=== PATIENT | female | born 1970 | race Caucasian/White ===

== ENCOUNTER 2016-08-24 03:46 | Inpatient (IN) | payer MEDICAID ==
[~2016-08-24] VITALS: Ht 160 cm; Wt 94.8 kg
[~2016-08-24 03:46] MED LIST: IBUPROFEN400 MG PO
--- NOTE | 2016-08-24 04:11 | NUR ---
RECEIVED 46 Y/O F PT C/O LEFT FLANK PAIN. DESCRIBES THE PAIN AN ACHING 7/10 PAIN THAT COMES AND GOES. PT WOKE UP FROM HER SLEEP WITH LEFT FLANK PAIN. PT IS A&O X4, FOLLOWS COMMANDS, ABLE TO MAKE NEEDS KNOWN, DENIES PAIN RADIATING ANYWHERE.
--- NOTE | 2016-08-24 05:10 | NUR ---
WAREHOUSE WORKER AT BEDSIDE FOR BLOOD DRAW.
--- NOTE | 2016-08-24 05:17 | NUR ---
TECH AT BEDSIDE TO BRING PT TO CT.
[2016-08-24 05:26] LABS: BASOPHIL % 0.3 % (0-2); PLATELET COUNT 351 x10^3mcL (130-400)
[2016-08-24 05:28] LABS: microscopic required? YES; urine erythrocyte 3+ (NEGATIVE)
[2016-08-24 05:28] LABS: RED CELL DISTRIBUTION WIDTH 15.6 % (11.5-14.5)
[2016-08-24 05:30] LABS: CALCIUM 8.9 mg/dL (8.5-10.1); CARBON DIOXIDE 27.2 mmol/L (21-32); CHLORIDE SERUM 104 mmol/L (98-107); CREATININE SERUM 0.7 mg/dL (0.6-1.0); GFR1 > 60 mL/min; GLUCOSE SERUM 124 mg/dL (74-106); POTASSIUM SERUM 3.8 mmol/L (3.5-5.1); SODIUM SERUM 141 mmol/L (136-145)
[2016-08-24 05:34] LABS: ALKALINE PHOSPHATASE 79 U/L (46-116); ALT/SGPT 21 U/L (14-59); AST/SGOT 14 U/L (15-37); BILIRUBIN TOTAL 0.44 mg/dL (0.20-1.00); TOTAL PROTEIN, SERUM 7.5 g/dL (6.4-8.2)
[2016-08-24] MEDS ORDERED: GRALISE600 M2 (06:48)
--- NOTE | 2016-08-24 06:54 | NUR ---
SHOW CARD WRITER AT BEDSIDE FOR XRAY.
--- NOTE | 2016-08-24 07:07 | NUR ---
PT REPORT GIVEN TO TEREZA RAMIREZ, QUESTIONS AND CONCERNS ADDRESSED. PT WILL BE TRANSFERRED TO [facility]
--- NOTE | 2016-08-24 07:12 | NUR ---
PT IN BED SITTING UP COMFORTABLY WAITING TO BE TRANSFERRED. VS TAKEN.
[2016-08-24 07:35] LABS: MAGNESIUM 2.1 mg/dL (1.8-2.4); PHOSPHOROUS 4.4 mg/dL (2.5-4.9)
--- NOTE | 2016-08-24 07:35 | NUR ---
RECEIVED PT FROM ER TO [facility]IA [facility]. ABLE TO AMBULATE FROM GURNEY TO BED. MADE COMFORTABLE. ORIENT TO ROOM AND CALL LIGHT SYSTEM. TELE #38 PLACED SINUS RHYTHM RATE 61. RESP 18 EVEN. BREATH SOUNDS CLEAR. PULSE OX 96% RA. ABD ROUNDED BUT SOFT, BOWEL TONES PRESENT. LBM=6-29-17. VOIDING QS. DENIES BURNING OR FREQUENCY. REPORTS "WOKE UP AT 2:30AM WITH LEFT LOWER BACK PAIN. 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 PT REPORTS "HAD KIDNEY STONE OVER 5 YEARS AGO AND THEY GAVE ME MEDICATION AND ALOT OF WATER TO FLUSH IT OUT. NO SURGERY. NO PROBLEMS SINCE. INSTRUCTED WITH NPO STATUS. NO EDEMA. PULSES PRESENT. SCD IN PLACE. IVF NORMAL SALINE STARTED TO LEFT HAND IV SITE PATENT RATE 150CC/HR. INSTRUCTED WITH NEED TO STRAIN ALL URINE. VERBALIZED UNDERSTANDING.
[2016-08-24 07:36] LABS: CHOLESTEROL/HDL RATIO 2.7
[2016-08-24 07:43] LABS: FREE T4 1.1 ng/dL (0.76-1.46); FREE THYROXINE INDEX 2.8 ug/dL (1.4-4.5); T4(THYROXINE) 8.1 ug/dL (4.7-13.3)
[2016-08-24 08:40] LABS: T3 TOTAL 1.58 ng/mL
[2016-08-24 09:51] VITALS: BP 95/55
--- NOTE | 2016-08-24 10:30 | NUR ---
AIC=6.7. DR ORDER TO CHANGE IVF TO D5NS 170CC/HR STARTED. CONSULT ORDERED WITH DR WHITT AND DR DENISE. PT MADE AWARE. VOIDED 200CC URINE, STRAINED NO EVIDENCE OF STONE.
--- NOTE | 2016-08-24 14:45 | NUR ---
NOTED NEW ORDERS. [facility] IVF CHANGED TO NORMAL SALINE 170CC/HR. DENIES PAIN TO LOWER BACK. STILL DISCOMFORT TO LEFT ARM. CONTINUE TO STRAIN UX FOR STONE. CALL LIGHT IN REACH.
--- NOTE | 2016-08-24 15:30 | NUR ---
REPORTS "THE KIDNEY DR CAME IN AND SAID I COULD GO HOME." PAGE TO DR ROACH FOR CLARIFICATION TO TX PLAN. TOLERATED DIET WELL. WILL CONTINUE TO MONITOR RBS AC/HS. CALL LIGHT IN REACH.
[2016-08-24 16:38] VITALS: BP 114/75
--- NOTE | 2016-08-24 17:25 | NUR ---
YHP=[id number]. NO RISS COVERAGE. PT REPORTS "WAS TOLD WAS [facility], MY SISTER IS DIABETIC. I CHECK MY SUGAR SOMETIMES AT HOME. WAS GIVEN METFORMIN BUT DID NOT WANT TO TAKE IT. DECIDED TO LOSE WEIGHT AND EXERCISE." PAGE TO DR ROACH. CAME TO SPEAK WITH PT RE:PLAN OF CARE. RECOMMENDED TO STAY FOR IVF AND PAIN MEDS NEEDED AND CONTINUE TO STRAIN FOR STONE. PT VERBALIZED UNDERSTANDING. IV CONTINUES PATENT 170CC/HR. CALL LIGHT IN REACH.
[2016-08-24 17:45] VITALS: BP 105/63
--- NOTE | 2016-08-24 19:05 | NUR ---
RECEIVED REPORT TRINIDADMartin STARKS, ALL QUESTIONS ADDRESSED WILL TAKE OVER CARE
--- NOTE | 2016-08-24 19:10 | NUR ---
PATIENT RECEIVED AWAKE, ALERT, AND ORIENTED X4. NO DISTRESS NOTED. PATIENT DENIES PAIN AT THIS TIME. IV SITE TO LEFT HAND, PATENT AND INTACT. IV FLUID INFUSING PER DOCTOR'S ORDER. BED IN LOWEST POSITION. CALL LIGHT WITHIN REACH. WILL CONTINUE TO MONITOR.
[2016-08-24 20:20] VITALS: BP 104/66
--- NOTE | 2016-08-25 02:29 | NUR ---
PT RESTING IN BED NO S/S OF DISTRESS, WILL CONTINUE TO MONITOR.
[2016-08-25 06:46] LABS: BASOPHIL % 0.4 % (0-2); PLATELET COUNT 280 x10^3mcL (130-400)
[2016-08-25 06:51] LABS: RED CELL DISTRIBUTION WIDTH 15.9 % (11.5-14.5)
[2016-08-25 06:54] VITALS: BP 106/74
[2016-08-25 07:01] LABS: CALCIUM 7.9 mg/dL (8.5-10.1); CARBON DIOXIDE 26.2 mmol/L (21-32); CHLORIDE SERUM 109 mmol/L (98-107); CREATININE SERUM 0.6 mg/dL (0.6-1.0); GFR1 > 60 mL/min; GLUCOSE SERUM 132 mg/dL (74-106); PHOSPHOROUS 3.3 mg/dL (2.5-4.9); SODIUM SERUM 142 mmol/L (136-145)
--- NOTE | 2016-08-25 07:15 | NUR ---
REPORT GIVEN TO JAMES STARKS, ALL QUESTYIONS ADDRESSED, WILL ENDORSE CARE.
--- NOTE | 2016-08-25 08:00 | NUR ---
AWAKE AND ALERT. TEMP 98.2. TELE #38 SINUS RHYTHM RATE 75. RESP 18 EVEN. BREATH SOUNDS CLEAR. PULSE OX 97% RA. ABD SOFT, BOWEL TONES PRESENT. LBM=6-3-17. VOIDING QS, DENIES BURNING OR FREQUENCY. CONTINUE TO STRAIN URINE FOR STONE. C/O MILD LEFT LOWER BACK TENDERNESS 5/10. WILL MEDICATE FOR DISCOMFORT. ALSO C/O HEADACHE. WILL MEDICATE FOR LASSITER. SIDE RAILS UP X2. CALL LIGHT IN REACH.
--- NOTE | 2016-08-25 08:04 | NUR ---
MED WITH BACLOPHEN AND TYLENOL ORDERED. IV CONTINUES PATENT TO LEFT HAND NORMAL SALINE 170CC/HR. CALL LIGHT IN REACH.
--- NOTE | 2016-08-25 08:55 | NUR ---
DR VANESSA AND MEDICAL TEAM IN ON ROUNDS. CHARGE AND PRIMARY NURSE PRESENT. DISCUSSED KIDNEY STONE AND NEED FOR IVF AND PAIN MEDS NEEDED. PT VERBALIZED UNDERSTANDING.
[2016-08-25 09:33] VITALS: BP 110/71
--- NOTE | 2016-08-25 10:00 | NUR ---
PT AMBULATES WELL IN HALLWAY. IV CONTINUES PATENT. DENIES PAIN. CONTINUE TO STRAIN URINE.
--- NOTE | 2016-08-25 12:30 | NUR ---
YUA=[id number]. NO RISS COVERAGE. FAMILY AT BEDSIDE.
[2016-08-25 14:16] VITALS: BP 114/65
--- NOTE | 2016-08-25 17:00 | NUR ---
IKX=[id number]. DENIES PAIN. IV CONTINUES PATENT. CALL LIGHT IN REACH. AMBULATES WELL IN HALLWAY. CONTINUE TO STRAIN URINE FOR STONE.
[2016-08-25 17:27] VITALS: BP 96/63
--- NOTE | 2016-08-25 19:20 | NUR ---
PT LAYING IN BED, A/O X4. ON TELE #38, NSR, DENIES CHEST PAIN AT THIS TIME. PULSES PALPABLE, NO EDEMA NOTED, SCDs IN PLACE. LUNG SOUNDS CTA, DENIES SOB. PT REPORTS LAST GM 08/25/16, DIARRHEA. VOIDS FREELY, DENIES PAIN OR BURNING UPON URINATION. STRAIN ALL URINE. BRP. PT IS AMBULATORY, SKIN IS INTACT. REPORTS PAIN 6/10, HEADACHE. PT REQUESTS BACLOFEN, WILL NOTIFY . IVF INFUSING WELL TO LF AT 170 ML/HR. BED IN LOWEST SETTING, SIDE RAILS UP X2, CALL LIGHT WITHIN REACH. WILL CONTINUE TO MONITOR.
--- NOTE | 2016-08-25 20:10 | NUR ---
PT ADMITS TO HEADACHE, PAIN LEVEL-6/10. REPORTS TYLENOL FROM EARLIER HAD MINIMAL RELIEF, AND BACLOFEN WAS MORE EFFECTIVE. NOTIFIED DR FULLER. PER MD ORDERS, PT IS TO RECEIVE BACLOFEN Q8H PRN. WILL ADMINISTER MEDICATION ORDERED.
[2016-08-25 20:38] VITALS: BP 122/78
[2016-08-26 05:33] VITALS: BP 111/59
--- NOTE | 2016-08-26 05:39 | NUR ---
PT COMPLAINING OF WORSENING COUGH. DR FULLER NOTIFIED. WILL ADMINISTER ROBITUSSIN ORDERED.
--- NOTE | 2016-08-26 07:01 | NUR ---
PT SLEPT AT INTERVALS THROUGHOUT THE NIGHT. PT REPORTS DEVELOPING A COUGH OVERNIGHT. DR FULLER MADE AWARE. PT DENIES PAIN AT THIS TIME. URINE STRAINED THROUGHOUT THE EVENING. ALL NEEDS MET. IVF INFUSING WELL TO LH. WILL ENDORSE CARE TO AM NURSE.
[2016-08-26 07:50] LABS: BASOPHIL % 0.4 % (0-2); PLATELET COUNT 281 x10^3mcL (130-400)
[2016-08-26 07:51] LABS: RED CELL DISTRIBUTION WIDTH 15.9 % (11.5-14.5)
[2016-08-26 07:54] LABS: CALCIUM 8.7 mg/dL (8.5-10.1); CARBON DIOXIDE 26.8 mmol/L (21-32); CHLORIDE SERUM 107 mmol/L (98-107); CREATININE SERUM 0.7 mg/dL (0.6-1.0); GFR1 > 60 mL/min; GLUCOSE SERUM 117 mg/dL (74-106); MAGNESIUM 1.7 mg/dL (1.8-2.4); PHOSPHOROUS 3.7 mg/dL (2.5-4.9); POTASSIUM SERUM 4.1 mmol/L (3.5-5.1); SODIUM SERUM 141 mmol/L (136-145)
--- NOTE | 2016-08-26 08:00 | NUR ---
PT IS A+OX4, DENIES PAIN, NAUSEA, SOB, AND HEADACHE, TELE #38, PULSES MODERATE AND EQUAL BILATERALLY, NO EDEMA PRESENT, LUNG SOUNDS CLEAR, TOLERATING ROOM AIR, BOWEL SOUNDS ACTIVE, VOIDING, CURRENTLY STRAINING URINE FOR KIDNEY STONE, NO GENERALIZED WEAKNESS, AMBULATORY, SKIN INTACT, IV IN LH WITH NS @ 170 ML/HR, SITE WNL. WBC 13.6, HGB 11.9, MG 1.7.
--- NOTE | 2016-08-26 08:31 | NUR ---
LAB CALLED WITH CRITICAL VALUE WBC: 3.6 AND REQUESTING SEPSIS PROTOCOL. WILL NOTIFY DR DURING ROUNDS THIS MORNING.
[2016-08-26 08:48] VITALS: BP 125/78
--- NOTE | 2016-08-26 10:03 | NUR ---
PT GIVEN TYLENOL FOR MILD FEVER 99.2.
--- NOTE | 2016-08-26 10:06 | NUR ---
PT RESTING IN BED, NO RESPIRATORY DISTRESS NOTED, DENIES PAIN, NAUSEA, SOB, AND HEADACHE.
--- NOTE | 2016-08-26 10:30 | NUR ---
PT TEMP: 98.8.
--- NOTE | 2016-08-26 10:59 | NUR ---
DR FUENTES NOTIFIED OF PT WBC 13.6.
--- NOTE | 2016-08-26 11:00 | NUR ---
PT VITAL SIGNS STABLE AND WNL, SEPSIS CRITERIA NOT MET.
[2016-08-26 12:37] LABS: PLATELET COUNT 335 x10^3mcL (130-400)
--- NOTE | 2016-08-26 12:49 | NUR ---
PT RESTING IN BED, NO RESPIRATORY DISTRESS NOTED, DENIES PAIN, NAUSEA, SOB, AND HEADACHE.
[2016-08-26 12:56] LABS: BASOPHIL % 3.5 % (0-2); RED CELL DISTRIBUTION WIDTH 14.7 % (11.5-14.5)
[2016-08-26 13:39] VITALS: BP 121/71
--- NOTE | 2016-08-26 14:18 | NUR ---
PT RESTING IN BED, NO RESPIRATORY DISTRESS NOTED, DENIES PAIN, NAUSEA, SOB, AND HEADACHE.
--- NOTE | 2016-08-26 15:26 | NUR ---
PT AMBULATING IN ROOM, NO RESPIRATORY DISTRESS NOTED, DENIES PAIN, SOB, HEADAHCE, AND NAUSEA.
--- NOTE | 2016-08-26 16:23 | NUR ---
PT AMBULATING IN ROOM, TOLERATING WELL, NO RESPIRATORY DISTRESS NOTED, DENIES PAIN, SOB, HEADACHE, AND NASUEA.
[2016-08-26 16:48] VITALS: BP 121/71
[2016-08-26] MEDS ORDERED: LIO10 PO (16:48)
[2016-08-26] MEDS ORDERED: FLO4 PO (16:48)
[2016-08-26] MEDS ORDERED: BG FS (16:48)
[2016-08-26] MEDS ORDERED: MIRUD PO (16:50)
[2016-08-26] MEDS ORDERED: COL100 PO (16:50)
[2016-08-26] MEDS ORDERED: GLU500 PO (16:50)
[2016-08-26] MEDS ORDERED: ZOF4 PO (16:51)
[2016-08-26] MEDS ORDERED: ACETAMINOPHEN-H1 TA1 PO (16:52)
[2016-08-26] MEDS ORDERED: LEVAQUIN750 MG PO (16:58)
[2016-08-26] MEDS ORDERED: LAC PO (16:58)
--- NOTE | 2016-08-26 17:13 | NUR ---
IV REMOVED, CATHETER INTACT, GUAZE AND TAPE PLACED ON SITE. TELE BOX REMOVED AND RETURNED TO WIND TECHNICIAN STATION.
--- NOTE | 2016-08-26 17:54 | NUR ---
PT GIVEN DISCHARGE INFORMATION AND VERABLIZED UNDERSTANDING, OFF THE UNIT VIA WHEELCHAIR WITH ALL BELONGINGS ESCORTED BY BILLET CUTTER AND TWO FAMILY MEMBERS.
== END 2016-08-26 17:56 | disposition home or self-care (01) | DRG 465 ==
LOC: ED 03:46 → DU 06:41 → MU 08-26 11:43
PROVIDERS: Emergency Medicine; ADMIT Family Medicine
DX: N13.2 Hydronephrosis with renal and ureteral calculous obstruction (principal); D68.69 Other thrombophilia; M06.9 Rheumatoid arthritis, unspecified; R31.9 Hematuria, unspecified; E11.65 Type 2 diabetes mellitus with hyperglycemia; D72.829 Elevated white blood cell count, unspecified
CPT/HCPCS: 82962; 83880; 84439; 94150; G0480; J1885; J1956; J2405; J7030; Q0092; Q0162

== ENCOUNTER 2016-09-01 13:14 | Emergency (ER) | payer MEDICAID ==
[~2016-09-01 13:14] MED LIST changes: +ACETAMINOPHEN-H1 TA1 PO; +BG FS; +COL100 PO; +FLO4 PO; +GLU500 PO; +GRALISE600 M2; +LAC PO; +LEVAQUIN750 MG PO; +LIO10 PO; +MIRUD PO; +ZOF4 PO
[2016-09-01 13:33] VITALS: BP 126/86
== END 2016-09-01 16:18 | disposition left against medical advice (07) ==
LOC: ED 13:14
DX: Z53.21 Procedure and treatment not carried out due to patient leaving prior to being seen by health care provider (principal)

== ENCOUNTER 2018-05-31 20:11 | Emergency (ER) | payer BC ==
[~2018-05-31] VITALS: Ht 165.1 cm; Wt 96.6 kg
[2018-05-31 20:22] VITALS: Ht 165.1 cm; Wt 96.6 kg
[2018-05-31 20:55] VITALS: BP 132/79
== END 2018-05-31 20:55 | disposition home or self-care (01) ==
LOC: ED 20:11
DX: M54.2 Cervicalgia (principal); G89.29 Other chronic pain; M06.9 Rheumatoid arthritis, unspecified
CPT/HCPCS: J1885

== ENCOUNTER 2018-11-25 17:17 | Emergency (ER) | payer BC ==
[~2018-11-25] VITALS: Ht 165.1 cm; Wt 94.3 kg
[2018-11-25 17:21] VITALS: Ht 165.1 cm; Wt 94.3 kg
[2018-11-25 20:04] VITALS: BP 101/60
== END 2018-11-25 20:04 | disposition home or self-care (01) ==
LOC: ED 17:17
DX: M54.6 Pain in thoracic spine (principal); G89.29 Other chronic pain; M19.90 Unspecified osteoarthritis, unspecified site
CPT/HCPCS: J1885

== ENCOUNTER 2019-01-20 13:49 | Inpatient (IN) | payer MEDICAID ==
[~2019-01-20] VITALS: Ht 170.2 cm; Wt 91.6 kg
[2019-01-20 15:37] LABS: BASOPHIL % 0.4 % (0-2); PLATELET COUNT 378 x10^3mcL (130-400)
[2019-01-20 15:41] LABS: CALCIUM 9.9 mg/dL (8.5-10.1); CHLORIDE SERUM 99 mmol/L (98-107); CREATININE SERUM 0.7 mg/dL (0.6-1.0); GFR1 > 60 mL/min; GLUCOSE SERUM 157 mg/dL (74-106); SODIUM SERUM 138 mmol/L (136-145)
[2019-01-20 15:46] LABS: ALKALINE PHOSPHATASE 92 U/L (46-116); ALT/SGPT 21 U/L (14-59); AMYLASE 44 U/L (25-115); AST/SGOT 13 U/L (15-37); BILIRUBIN TOTAL 0.7 mg/dL (0.20-1.00); LIPASE 67 IU/L (73-393)
[2019-01-20 15:48] LABS: ALBUMIN 3.3 g/dL (3.4-5.0)
[2019-01-20 15:51] LABS: RED CELL DISTRIBUTION WIDTH 14.6 % (11.5-14.5)
[2019-01-20 21:25] VITALS: BP 99/76
[2019-01-20 21:30] VITALS: Ht 170.2 cm; Wt 91.6 kg
[2019-01-21 05:58] VITALS: BP 108/55
[2019-01-21 06:27] LABS: BASOPHIL % 0.4 % (0-2); PLATELET COUNT 328 x10^3mcL (130-400)
[2019-01-21 06:31] LABS: RED CELL DISTRIBUTION WIDTH 14.6 % (11.5-14.5)
[2019-01-21 06:45] LABS: CALCIUM 8.4 mg/dL (8.5-10.1); CARBON DIOXIDE 29.2 mmol/L (21-32); CHLORIDE SERUM 103 mmol/L (98-107); CREATININE SERUM 0.7 mg/dL (0.6-1.0); GFR1 > 60 mL/min; GLUCOSE SERUM 138 mg/dL (74-106); POTASSIUM SERUM 4.1 mmol/L (3.5-5.1); SODIUM SERUM 140 mmol/L (136-145)
[2019-01-21 09:20] VITALS: BP 105/56
[2019-01-21 12:46] VITALS: BP 97/65
[2019-01-21 17:16] VITALS: BP 105/69
[2019-01-21 18:51] VITALS: BP 105/69
== END 2019-01-21 19:44 | disposition home or self-care (01) | DRG 465 ==
LOC: ED 13:49 → MU 19:47
PROVIDERS: Internal Medicine Gastroenterology; Specialist; ADMIT Internal Medicine
PROC: 0DB78ZX Excision of Stomach, Pylorus, Via Natural or Artificial Opening Endoscopic, Diagnostic (ICD-10-PCS; principal; 2019-01-21 11:30)
DX: N20.0 Calculus of kidney (principal); D72.829 Elevated white blood cell count, unspecified; M06.9 Rheumatoid arthritis, unspecified; K27.9 Peptic ulcer, site unspecified, unspecified as acute or chronic, without hemorrhage or perforation; E66.9 Obesity, unspecified; Z87.442 Personal history of urinary calculi; Z68.31 Body mass index [BMI] 31.0-31.9, adult; Z79.1 Long term (current) use of non-steroidal anti-inflammatories (NSAID)
CPT/HCPCS: 43235; 90658; G0378; J0696; J1200; J1610; J1885; J1956; J2250; J2270; J2310; J2405; J3010; J3490; J7030; J7042; Q0092; Q0162

== ENCOUNTER 2019-01-24 04:20 | Emergency (ER) | payer MEDICAID ==
[~2019-01-24] VITALS: Ht 170.2 cm; Wt 93.9 kg
[2019-01-24 04:29] VITALS: Ht 170.2 cm; Wt 93.9 kg
[2019-01-24 05:15] LABS: BASOPHIL % 1.4 % (0-2); PLATELET COUNT 345 x10^3mcL (130-400)
[2019-01-24 05:27] LABS: CALCIUM 8.8 mg/dL (8.5-10.1); CARBON DIOXIDE 28.5 mmol/L (21-32); CHLORIDE SERUM 103 mmol/L (98-107); CREATININE SERUM 0.8 mg/dL (0.6-1.0); GFR1 > 60 mL/min; GLUCOSE SERUM 166 mg/dL (74-106); POTASSIUM SERUM 3.8 mmol/L (3.5-5.1); SODIUM SERUM 141 mmol/L (136-145)
[2019-01-24 05:31] LABS: ALKALINE PHOSPHATASE 81 U/L (46-116); ALT/SGPT 28 U/L (14-59); AST/SGOT 21 U/L (15-37); BILIRUBIN TOTAL 0.5 mg/dL (0.20-1.00); TOTAL PROTEIN, SERUM 7.8 g/dL (6.4-8.2)
[2019-01-24 05:35] LABS: ALBUMIN 2.9 g/dL (3.4-5.0)
[2019-01-24 06:02] VITALS: BP 139/67
== END 2019-01-24 06:02 | disposition home or self-care (01) ==
LOC: ED 04:20
PROVIDERS: Emergency Medicine
DX: N23 Unspecified renal colic (principal); M06.9 Rheumatoid arthritis, unspecified; Z87.442 Personal history of urinary calculi
CPT/HCPCS: J1885; J7030; Q0092